=== PATIENT | female | born 1995 | race Caucasian/White ===

== ENCOUNTER 2018-06-01 21:46 | Emergency (ER) | payer OTHER ==
[2018-06-01 21:50] VITALS: BMI 32.9
--- NOTE | 2018-06-01 21:50 | PDOC ---
Rapid Medical Evaluation Time Seen by Provider: 06/01/18 21:48 Medical Evaluation: 06/01/18 21:49 I have performed a brief in-person evaluation of this patient. The patient presents with a chief complaint of: sore throat x10 days. Finished course of clindamycin. Pertinent physical exam findings: OP-mildly erythematous. No stridor. I have ordered the following: nothing The patient will proceed to the ED for further evaluation. Discharge Disposition - Diagnosis Pharyngitis - Referrals - Patient Instructions - Post Discharge Activity
--- NOTE | 2018-06-01 23:29 | PDOC ---
History of Present Illness - General Chief Complaint: Sore Throat Stated Complaint: SWOLLEN THROAT Time Seen by Provider: 06/01/18 21:48 History Source: Patient Exam Limitations: No Limitations - History of Present Illness Initial Comments: 23 yo F w no pmh presents to the ER with a sore throat. She states that her sore throat began on May 18. [facility] they did a rapid strep test on her which came back negative but because her throat was getting worse they prescribed her a 10 day course of clindamycin. She was given clindamycin bc she is allergic to penicillin. She states that her throat was getting better while she was taking the antibiotics but when she stopped her throat began to hurt again. She also endorses left ear pain and left neck pain. She states that her face hurts a good amount whenever she opens her mouth too much. She does not believe she has had fevers but has felt warm and occasionally experiences the chills. PCP: Bhumi Gonzalez PSH: None reported Social Hx:Former 6 cigs/day smoker, now she vapes every day. Drinks relationally , denies other substance usage. Allergies: Penicillins Past History - Past Medical History Allergies/Adverse Reactions: Allergies Allergy/AdvReac Type Severity Reaction Status Date / Time Penicillins Allergy Verified 06/01/18 21:50 COPD: No Psychiatric Problems: Yes (DEPRESSION) - Suicide/Smoking/Psychosocial Hx Smoking History: Never smoked Review of Systems - Review of Systems Able to Perform ROS?: Yes Comments:: CONSTITUTIONAL: Present: Chills Absent: fever, no fatigue EYES: Absent: visual changes ENT: Present: ear pain, sore throat, neck pain CARDIOVASCULAR: Absent: chest pain, no palpitations RESPIRATORY: Absent: cough, no SOB GI: Absent: abdominal pain, no nausea, no vomiting, no constipation, no diarrhea GENITOURINARY: Absent: dysuria, no frequency, no hematuria MUSKULOSKELETAL: Absent: back pain, no arthralgia, no myalgia SKIN: Absent: rash NEURO: Absent: headache *Physical Exam - Vital Signs Last Vital Signs Temp Pulse Resp BP Pulse Ox 97.7 F 93 H 18 127/75 100 06/01/18 21:48 06/01/18 21:48 06/01/18 21:48 06/01/18 21:48 06/01/18 21:48 - Physical Exam Comments: GENERAL: Well-appearing, well-nourished. Mild distress. HEENT: The left ear is erythematous and the tympanic membrane is mildly bulging. The oropharynx is erythematous without exudate or edema. Normocephalic, atraumatic. PERRLA, EOMI. No conjunctival pallor. Sclera are non-icteric. Moist mucous membranes. NECK: There are shotty lymph nodes bilaterally on the neck Left more than right. Supple. Full ROM. No thyromegaly. CARDIOVASCULAR: Normal S1, S2. Regular rate and rhythm. PULMONARY: No evidence of respiratory distress. Lungs clear to auscultation bilaterally. No wheezing, rales or rhonchi. ABDOMEN: Soft, non-distended, non-tender. EXTREMITIES: Normal ROM in all four extremities. No gross deformities. SKIN: Warm, dry. No rash NEUROLOGICAL: No focal neurological deficits. ED Treatment Course - LABORATORY CBC & Chemistry Diagram: 06/02/18 00:27 06/02/18 00:27 Medical Decision Making - Medical Decision Making 23 yo F w no pmh presents to the ER with a sore throat. She states that her sore throat began on May 18. [facility] to [facility] where they did a rapid strep test on her which came back negative but because her throat was getting worse they prescribed her a 10 day course of clindamycin. She was given clindamycin bc she is allergic to penicillin. She states that her throat was getting better while she was taking the antibiotics but when she stopped her throat began to hurt again. She also endorses left ear pain and left neck pain. She states that her face hurts a good amount whenever she opens her mouth too much. She does not believe she has had fevers but has felt warm and occasionally experiences the chills. VS: WNL DDx IBNLT: Strep, pharyngitis, RPA, CODING COMPLIANCE SPECIALIST, otitis media, URI. Plan: strep swab, cbc, bmp, ua, hcg, motrin, soft tissue neck CT, +/- Abx, re- assess. Strep swab negative. - Will get a neck soft tissue CT to r/o abscess. Neck CT shows a large left lymph node. - Will DC patient with supportive care. *DC/Admit/Observation/Transfer Diagnosis at time of Disposition: Pharyngitis, Lymphadenitis - Discharge Dispostion Disposition: HOME Condition at time of disposition: Stable Decision to Admit order: No - Referrals Referrals: Bhumi Gonzalez [Primary Care Provider] - - Patient Instructions Printed Discharge Instructions: Sore Throat, DI for Pharyngitis/ Tonsillopharyngitis -- Adult, Viral Pharyngitis Additional Instructions: You came into the ER with throat pain. We did a cat scan which showed you do not have an abscess or collection of pus inside your neck. Take motrin/ibuprofen/advil or tylenol as needed for pain control. Drink plenty of fluids. Please make sure to schedule a follow up appointment with your primary care doctor in the next 3 to 5 days to make sure you are being taken care of and getting better. Thank you for coming to the [facility] ER. We hope you feel better soon! Print Language: CITIZEN OF [place] - Post Discharge Activity
[2018-06-01] MEDS ORDERED: IBUPROFEN 600 MG TABLET (FP) PO ONE (23:52)
[2018-06-02 00:44] LABS: BASO % 0.3 % (0-2.0); EOS % 2.1 % (0-4.5); HEMATOCRIT 38.7 % (32.4-45.2); HEMOGLOBIN 13.6 GM/dL (10.7-15.3); LYMPH % 31.3 % (8-40); MCH 31.4 pg (25.7-33.7); MEAN CELL VOLUME 89.8 fl (80-96); MEAN PLT VOLUME 9.6 fl (7.5-11.1); MONO % 8.1 % (3.8-10.2); NEUT % 58.2 % (42.8-82.8); PLATELET COUNT 239 K/MM3 (134-434); RBC 4.31 M/mm3 (3.60-5.2); RDW 13.3 % (11.6-15.6)
[2018-06-02 00:47] LABS: URINE APPEARANCE CLEAR; URINE BILIRUBIN NEGATIVE (NEGATIVE); URINE COLOR YELLOW; URINE GLUCOSE (UA) NEGATIVE (NEGATIVE); URINE KETONE NEGATIVE (NEGATIVE); URINE LEUK ESTERASE NEGATIVE (NEGATIVE); URINE NITRITE NEGATIVE (NEGATIVE); URINE PROTEIN NEGATIVE (NEGATIVE); URINE UROBILINOGEN 0.2 mg/dL (0.2-1.0)
[2018-06-02 00:49] LABS: HCG,QUALITATIVE URINE Negative
[2018-06-02 01:03] LABS: ANION GAP 5 MMOL/L (8-16); BLOOD UREA NITROGEN 12 mg/dL (7-18); CALCIUM 9.3 mg/dL (8.5-10.1); CHLORIDE 105 mmol/L (98-107); CO2 30 mmol/L (21-32); CREATININE 0.6 mg/dL (0.55-1.3); GLUCOSE,RANDOM 89 mg/dL (74-106); SODIUM 140 mmol/L (136-145)
[2018-06-02] MEDS ORDERED: IBUPROFEN 600 MG TABLET (FP) PO ONE (01:19)
--- NOTE | 2018-06-02 01:21 | PDOC ---
Documentation entered by Rodrigo Brock SCRIBE, acting as scribe for Lena Root MD. Attending Attestation - Resident Resident Name: Robbie Arriola - ED Attending Attestation I have performed the following: I have examined & evaluated the patient, The case was reviewed & discussed with the resident, I agree w/resident's findings & plan, Exceptions are as noted - HPI HPI: 06/02/18 00:26 Patient is a 23 year old female with no significant past medical history who presents to the ED with complaints of throat pain that began 15 days ago. Patient reports experiencing increased throat pain that she states began on May 18 and has gradually increased in intensity over time. She reports going to urgent care last week and had rapid strep test done with results being negative. She states she was discharged with a 10 day prescription of clindamycin which she completed. Patient reports 5 days into the cycle she began to experience increased throat pain with swallowing and speaking. Denies SOB, fevers, chills, drooling. Denies chest pain, sob. Denies nausea, vomiting. Denies diarrhea, constipation. Denies dysuria, hematuria. Denies contact with sick individuals, out of state travelling. Denies any other symptoms. Allergies: Penicillin. Social history: Former smoker (1.5 packs a week). Currently vapes. No alcohol. No illicit drugs. Surgical history: None PMD: Not on staff. - Physicial Exam PE: 06/02/18 01:03 GENERAL: Awake, alert, and fully oriented, in no acute distress. Ambulating in the ED comfortably. HEAD: No signs of trauma EYES: PERRLA, EOMI, sclera anicteric, conjunctiva clear ENT: +erythema to L EAC, no bulging TM or perforation b/l. Hearing grossly normal, nares patent, oropharynx clear without exudates. 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 Moist mucosa. No voice hoarseness. Handling secretions. NECK: Normal ROM, supple, no lymphadenopathy, JVD, or masses LUNGS: Breath sounds equal, clear to auscultation bilaterally. No wheezes, and no crackles HEART: Regular rate and rhythm, normal S1 and S2, no murmurs, rubs or gallops ABDOMEN: Soft, nontender, normoactive bowel sounds. No guarding, no rebound. No masses EXTREMITIES: Normal range of motion, no edema. No clubbing or cyanosis. No cords, erythema, or tenderness NEUROLOGICAL: Normal speech, cranial nerves intact, equal strength and sensation b/l SKIN: Warm, Dry, normal turgor, no rashes or lesions noted. - Medical Decision Making 06/02/18 01:11 23yo F presents to the ED with 2 weeks of progressive sore throat and pain when swallowing despite course of clindamycin Vitals wnl, no fevers Exam with non toxic patient, well appearing, in no resp distress, handling secretions Given prolonged duration of symptoms and increased pain with swallowing, will obtain imaging to eval for mass or abscess. Plan: -labs -CT neck soft tissue w/ contrast -reassess Lena Root MD: This documentation has been prepared by the Vinod andrea Matthew, SCRIBE, under my direction and personally reviewed by me in its entirety. I confirm that the documentation accurately reflects all work, treatment, procedures, and medical decision making performed by me.
[2018-06-02 02:53] VITALS: BP 130/70; PULSE 90; TEMP 97.9
== END 2018-06-02 02:51 | disposition home or self-care (01) ==
LOC: JER 21:46 → JERFT 21:46 → JER 06-02 02:51
DX: J02.9 Acute pharyngitis, unspecified (principal); I88.9 Nonspecific lymphadenitis, unspecified
CPT/HCPCS: 36415; 70491-TC; 80048; 81003; 84703; 85025; 87070; 87880; 99282-25